=== PATIENT | male | born 1995 | race Caucasian/White ===

== ENCOUNTER 2019-06-14 20:35 | Emergency (ER) | payer OTHER ==
[~2019-06-14] VITALS: Ht 188 cm; Wt 84.4 kg
[2019-06-14 20:37] VITALS: BP 136/81
== END 2019-06-14 22:09 | disposition home or self-care (01) ==
LOC: ED 20:55
DX: J20.8 Acute bronchitis due to other specified organisms (principal)
CPT/HCPCS: 71046; 99283